=== PATIENT | female | born 1975 | race Caucasian/White ===

== ENCOUNTER → 2020-01-25 09:55 | Outpatient (CLI) | payer OTHER, SELFPAY ==
--- NOTE | ~2020-01-25 | MR_ITS ---
EXAMINATION: MR lumbar spine wo/w con DATE: 01/25/2020 10:45 INDICATION: Postlaminectomy syndrome. Low back pain and bilateral leg pain. TECHNIQUE: Magnetic resonance imaging (MRI) of the lumbar spine was performed without and with 12 mL MultiHance intravenous contrast. Sequences included sagittal T2-weighted FSE, sagittal STIR FSE, and sagittal and axial T1-weighted FSE. Postcontrast sequences included axial T2-weighted FSE and axial a nd sagittal T1-weighted FS FSE. COMPARISON: Lumbar spine MRI 03/01/2017 FINDINGS: There is 6 degrees dextrocurvature lumbar spine. Vertebral body heights are normal. There a re changes of anterior and posterior fusion procedures at L4-L5 with interbody devices and pedicle sc rews. There is mildly decreased disc height at L3-L4. The distal spinal cord signal intensity is norm al. The conus medullaris is at L1. The following disc levels are specifically discussed: L1-L2: The disc does not extend beyond the endplate margin. There is mild bilateral facet joint osteo arthritis. There is no neural foraminal stenosis. There is no central canal stenosis. L2-L3: The disc does not extend beyond the endplate margin. There is mild bilateral facet joint osteo arthritis. There is no neural foraminal stenosis. There is no central canal stenosis. L3-L4: There is a left foraminal protrusion with annular fissure. There is mild bilateral facet joint osteoarthritis. There is mild bilateral neural foraminal stenosis. There is no central canal stenosi s. L4-L5: There is no facet joint hypertrophy. There is mild right neural foraminal stenosis. There is n o central canal stenosis. L5-S1: The disc does not extend beyond the endplate margin. There is severe bilateral facet joint ost eoarthritis. There is mild bilateral neural foraminal stenosis. There is no central canal stenosis. IMPRESSION: 1. Mild lumbar spondylosis, stable from 03/01/2017. 2. Anterior and posterior fusion procedures at L4-L5. Reviewed, dictated and finalized at location D.
[2020-01-25 10:18] LABS: Estimated Glomerular Filt Rate > 60
== END ==
PROVIDERS: Visit Provider Nurse Practitioner Family
DX: M96.1 Postlaminectomy syndrome, not elsewhere classified (principal); M47.896 Other spondylosis, lumbar region; Z98.1 Arthrodesis status
CPT/HCPCS: 72158; A9577

== ENCOUNTER → 2020-03-15 11:36 | Outpatient (CLI) | payer OTHER, SELFPAY ==
--- NOTE | ~2020-03-15 | MM_ITS ---
EXAMINATION: MM screening [facility] BI w frank HISTORY: Screening mammogram TECHNIQUE: Craniocaudal and mediolateral oblique 3-D tomosynthesis images were obtained and synthetic 2-D images were generated. CAD analysis was submitted and interpreted. COMPARISON: 07/23/2018, 05/31/2013, 01/09/2012 bilateral digital screening mammogram examinations BREAST PARENCHYMAL COMPOSITION: The breasts are heterogeneously dense, which may obscure small masses . FINDINGS: There is no evidence of suspicious mass, calcification, or architectural distortion to sugg est malignancy in either breast. There has been no suspicious interval change. IMPRESSION: 1. No mammographic evidence of malignancy. 2. Recommend routine screening mammography in one year. BI-RADS Category 1: Negative Reviewed, dictated and finalized at location A. GRATION LAWYER
== END ==
PROVIDERS: PCP Family Medicine; Visit Provider Family Medicine
DX: Z12.31 Encounter for screening mammogram for malignant neoplasm of breast (principal)
CPT/HCPCS: 77063; 77067

== ENCOUNTER → 2021-05-09 09:02 | Outpatient (CLI) | payer OTHER, SELFPAY ==
[2021-05-09 21:56] LABS: SARS-CoV-2 RNA PCR Negative
[2021-05-11 23:28] LABS: Influenza A QL RT-PCR Negative (Negative); Influenza B QL RT-PCR Negative (Negative)
== END ==
PROVIDERS: PCP Family Medicine; Visit Provider Family Medicine
DX: R50.9 Fever, unspecified (principal); J06.9 Acute upper respiratory infection, unspecified; Z20.822 Contact with and (suspected) exposure to COVID-19
CPT/HCPCS: 87502; C9803; U0003; U0005

== ENCOUNTER → 2021-10-16 16:53 | Outpatient (CLI) | payer OTHER, SELFPAY ==
--- NOTE | ~2021-10-16 | MR_ITS ---
EXAMINATION: MR lumbar spine wo con DATE: 10/16/2021 17:22 INDICATION: Postlaminectomy syndrome with low back and bilateral leg pain, left greater than right. TECHNIQUE: Magnetic resonance imaging (MRI) of the lumbar spine was performed without intravenous con trast. Sequences included sagittal T2-weighted FSE, sagittal T2-weighted FS FSE, sagittal T1-weighted FSE, and axial T2-weighted FSE. COMPARISON: 01/25/2020 FINDINGS: 2 mm retrolisthesis L3 on L4. Discectomy and combined instrumented anterior and posterior spinal fusi on at L4-L5 with interbody fusion device and bilateral vertical marcelino and pedicle screw fixation. Verte bral body heights are normal. Normal marrow signal. Mild disc desiccation and mild disc height loss at L3-L4. Mild disc desiccation without disc height loss at L5-S1. The conus medullaris terminates at L1. There is normal signal in the caudal spinal cord. Paravertebral soft tissues are unremarkable. T he following disc levels are specifically discussed: T12-L1 through L2-L3: The disc does not extend beyond the endplate margin. There is mild bilateral fa cet joint osteoarthritis. There is no neural foraminal stenosis. There is no central canal stenosis. L3-L4: Disc is mildly bulging with superimposed left foraminal zone annular fissure and disc protrusi on. There is mild to moderate bilateral facet joint osteoarthritis. There is mild right and moderate left neural foraminal stenosis. There is mild central canal stenosis. L4-L5: Instrumented anterior and posterior fusion. Posterior decompression with left-sided hemilamino margot including partial resection of the anterior aspect of the intra-articular process of L4 and supe rior articular process of L5. There is mild left neural foraminal stenosis. There is no central canal stenosis. L5-S1: Disc is mildly bulging with right foraminal zone annular fissure and new small disc protrusion . There is severe bilateral facet joint osteoarthritis. There is mild left and moderate right neural foraminal stenosis. There is no central canal stenosis. IMPRESSION: 1. Instrumented anterior and posterior spinal fusion at L4-L5. 2. Slight progression of mild lumbar spondylosis as detailed above. Reviewed, dictated and finalized at location A.
== END ==
PROVIDERS: PCP Family Medicine; Visit Provider Nurse Practitioner Family
DX: M47.26 Other spondylosis with radiculopathy, lumbar region (principal); Z98.1 Arthrodesis status
CPT/HCPCS: 72148

== ENCOUNTER → 2022-01-08 11:08 | Outpatient (CLI) | payer OTHER, SELFPAY ==
--- NOTE | ~2022-01-08 | CT_ITS ---
EXAMINATION: CT lumbar spine wo con DATE: 01/08/2022 11:23 INDICATION: Lumbar disc herniation. TECHNIQUE: Computed tomography (CT) of the lumbar spine was performed without intravenous contrast. A utomated exposure control and iterative reconstruction technique were employed. The dose-length produ ct was 734.80 mGy-cm. COMPARISON: Lumbar spine MRI 10/16/2021 FINDINGS: There are 2 masses in left adrenal gland with the larger measuring 1.9 cm measuring low-att enuation, consistent with adenomas. There is 2 mm retrolisthesis of L3 on L4. Vertebral body heights are normal. There is mildly decreased disc height at L3-L4. There are changes of anterior and posteri or fusion procedures at L4-L5 with interbody device, healed interbody bone graft, and pedicle screws. The following disc levels are specifically discussed: L1-L2: The disc does not extend beyond the endplate margin. There is mild bilateral facet joint osteo arthritis. There is no neural foraminal stenosis. There is no central canal stenosis. L2-L3: The disc does not extend beyond the endplate margin. There is mild right and moderate left fac et joint osteoarthritis. There is no neural foraminal stenosis. There is no central canal stenosis. L3-L4: The disc is bulging. There is mild bilateral facet joint osteoarthritis. There is mild right a nd moderate left neural foraminal stenosis. There is mild central canal stenosis. L4-L5: There is no facet joint hypertrophy. There is no neural foraminal stenosis. There is no centra l canal stenosis. L5-S1: The disc is bulging. There is severe bilateral facet joint osteoarthritis. There is moderate r ight and mild left neural foraminal stenosis. There is mild central canal stenosis. IMPRESSION: 1. Moderate lumbar spondylosis, stable from 10/16/2021. 2. Anterior and posterior fusion procedures at L4-L5. Reviewed, dictated and finalized at location A.
== END ==
PROVIDERS: PCP Family Medicine
DX: M51.26 Other intervertebral disc displacement, lumbar region (principal); G89.29 Other chronic pain
CPT/HCPCS: 72131

== ENCOUNTER 2022-03-15 16:55 | Emergency (ER) | payer OTHER, SELFPAY ==
--- NOTE | ~2022-03-15 | CT_ITS ---
EXAMINATION: CT lumbar spine wo con DATE: 03/15/2022 17:47 INDICATION: L lower back pain, Hx of spinal surg, pop tonight . TECHNIQUE: Computed tomography (CT) of the lumbar spine was performed without intravenous contrast. A utomated exposure control and iterative reconstruction technique were employed. The dose-length produ ct was 776.44 mGy-cm. COMPARISON: 01/08/2022. FINDINGS: Left adrenal adenomas. Atherosclerotic calcification of the abdominal aorta. Posterior lumb ar hardware fusion spanning L4-5, without evident hardware-related complication well incorporated bon e plug. Partial laminectomy at L4 on the left. 5 nonrib-bearing lumbar-type vertebral bodies. Pedicle s intact. Minimal stable trace retrolisthesis at L3-4.. Vertebral body heights preserved. Disc spaces maintained. Normal facets and posterior elements. No severe central canal or neural foraminal narrow ing. Moderate left L3-4 and right L5-S1 neural foraminal narrowing IMPRESSION: No acute fracture or traumatic malalignment in the lumbar spine. Reviewed, dictated and finalized at location K. SETTER
[2022-03-15 17:00] VITALS: BP 150/99; PULSE 94; RESP 17; TEMP 36.7; O2SAT 96
--- NOTE | 2022-03-15 17:20 | ED.BACK ---
HPI - Back Pain/Injury General Chief Complaint: Back Pain/Injury Stated Complaint: LOW BACK PAIN, POP X 2, HX BACK PAIN Time Seen by Provider: 03/15/22 17:00 Source: patient Mode of arrival: EMS Limitations: no limitations History of Present Illness HPI Narrative: Patient is a 46 y/o female who presents to the ED via EMS with c/o low back pain. Patient reports a history of chronic back pain, previous lumbar microdiscectomy and spinal fusion. She has been seeing pain management and undergoing physical therapy over the last several weeks. She states today she bent over to clean something in her bedroom when she felt two pops in her left lower back with severe pain. She states she was unable to stand upright, walk, or straighten her legs afterwards due to the intense pain, at which point EMS was called. Patient denies any abdominal pain, nausea, vomiting, pain radiating down legs, weakness in legs, numbness, tingling, saddle anesthesia, bowel or bladder incontinence. Patient takes Gabapentin 600mg TID, Tylenol and Hydrocodone prn. Related Data Home Medications Medication Instructions Recorded Confirmed gabapentin 600 mg tablet 600 mg PO Q8H 12/11/21 01/15/22 Allergies Allergy/AdvReac Type Severity Reaction Status Date / Time Penicillins Allergy Unknown Unknown Verified 03/15/22 17:05 Review of Systems Review of Systems: CONSTITUTIONAL: Denies fever, chills, or sweats. CARDIOVASCULAR: Denies chest pain. RESPIRATORY: Denies dyspnea. GASTROINTESTINAL: Denies abdominal pain, nausea, vomiting, incontinence, or diarrhea. GENITOURINARY: Denies incontinence, dysuria or hematuria. MUSCULOSKELETAL: Reports L lower back pain. Denies pain down legs. NEUROLOGIC: Denies headache, saddle anesthesia, tingling, numbness, or weakness. 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 Smoking packs per day: 1 Smoking cigarettes per day: 20.0 Years smoked: 20 Smoking pack-years: 20.00 Smoking status: Former smoker Tobacco type: cigarettes Smoking end date: 03/18/20 Alcohol intake: never Substance use: never Substance use type: does not use Gender identity (if verbalized by the patient): Female Sexual Orientation (if Verbalized by the Patient): Straight or Heterosexual Agree to blood products: Yes Exam Narrative: GENERAL: Well appearing, obese, non-toxic, in mild acute distress. HEAD: Normocephalic, atraumatic. NECK: Supple. No adenopathy, no masses. RESPIRATORY: Airway patent, respirations nonlabored. Clear to auscultation bilaterally, no rales, rhonchi, wheezing. CARDIOVASCULAR: Regular rate and rhythm without murmurs, rubs, or gallops. Pedal pulses 2+ and equal bilaterally. ABDOMINAL: Soft, nontender, nondistended, no hepatosplenomegaly. Normoactive BS. MUSCULOSKELETAL: No gross deformities. Patient laying with knees flexed with feet planted stretcher, unwilling to move legs, limiting evaluation. Tenderness with mild palpation to L lumbosacral region. No appreciable midline spinal tenderness. Patient reporting pain with straight leg raise on L, pain with active flexion of L hip. Sensation intact. SKIN: Warm, dry, normal color. No rashes. NEURO: A&O X3. Speech clear. Cranial nerves II-XII grossly intact. Steady gait. No ataxic movements. PSYCHIATRIC: A
[2022-03-15] MEDS: ONDANSETRON INJ 4 MG/2 ML VIAL IV PUSH (17:30)
[2022-03-15] MEDS: HYDROmorphone HCL INJ (*CRX) 1 MG/ML SYR IV PUSH (17:30)
[2022-03-15 17:53] VITALS: BP 150/96; PULSE 77; RESP 14; O2SAT 99
--- NOTE | 2022-03-15 19:13 | PC.NURSE ---
Assumed care of pt at this time.
[2022-03-15] MEDS: diazePAM INJ (*CRX) 10 MG/2 ML SYRINGE 2 MG IV PUSH (19:38)
[2022-03-15] MEDS: KETOROLAC 30 MG/ML VIAL (*BKC) IV PUSH (19:38)
--- NOTE | 2022-03-15 20:07 | PC.NURSE ---
Pt able to ambulate without assistance.
[2022-03-15 21:38] VITALS: BP 133/89; PULSE 97; RESP 16; O2SAT 99
== END 2022-03-15 21:40 | disposition home or self-care (01) ==
PROVIDERS: Emergency Provider Physician Assistant; PCP Family Medicine
DX: S39.012A Strain of muscle, fascia and tendon of lower back, initial encounter (principal); E78.5 Hyperlipidemia, unspecified; G89.29 Other chronic pain; Z90.710 Acquired absence of both cervix and uterus; Z98.1 Arthrodesis status; Z87.891 Personal history of nicotine dependence; X50.9XXA Other and unspecified overexertion or strenuous movements or postures, initial encounter
CPT/HCPCS: 72131; 96365; 96375; 99284; J0131; J1170; J1885; J2405; J3360

== ENCOUNTER → 2022-05-05 12:46 | Outpatient (CLI) | payer OTHER, SELFPAY ==
--- NOTE | ~2022-05-05 | MM_ITS ---
EXAMINATION: MM screening [facility] BI w frank HISTORY: Screening mammogram TECHNIQUE: Craniocaudal and mediolateral oblique 3-D tomosynthesis images were obtained and synthetic 2-D images were generated. CAD analysis was submitted and interpreted. COMPARISON: 03/15/2020, 07/23/2018, 05/31/2013 BREAST PARENCHYMAL COMPOSITION: The breasts are heterogeneously dense, which may obscure small masses . FINDINGS: No suspicious mass, calcification, or architectural distortion are identified in either malcolm ast to suggest malignancy. There has been no suspicious interval change. IMPRESSION: 1. No mammographic evidence of malignancy. 2. Recommend routine screening mammography in one year. BI-RADS Category 1: Negative Reviewed, dictated and finalized at location A. T MARKER
== END ==
PROVIDERS: PCP Family Medicine; Visit Provider Nurse Practitioner Family
DX: Z12.31 Encounter for screening mammogram for malignant neoplasm of breast (principal)
CPT/HCPCS: 77063; 77067

== ENCOUNTER 2022-08-14 07:42 | Outpatient (CLI) | payer OTHER, SELFPAY ==
--- NOTE | ~2022-08-14 | US_ITS ---
EXAMINATION: US abdomen complete DATE: 08/14/2022 08:17 INDICATION: Abdominal distention TECHNIQUE: Multiple grayscale and Doppler ultrasound images of the abdomen were obtained. COMPARISON: None available FINDINGS: Bowel gas obscures visualization of the pancreas. The visualized portions of the pancreas a re unremarkable. The liver is normal with normal echogenicity and echotexture. No surface nodularity. Normal hepatopetal flow in the main portal vein. The gallbladder is normal with no abnormal wall thi ckening, pericholecystic fluid or stones. The normal common bile duct measures 4 mm. There was no son ographic Xie sign. The visualized portions of the aorta and inferior vena cava are normal. The spleen is normal in appearance and measures 10.2 cm. The right kidney measures 11.2 x 4.9 x 5.5 c m. The left kidney measures 11.9 x 4.9 x 5.4 cm. The kidneys demonstrate normal parenchymal echogenic ity. There is no hydronephrosis. IMPRESSION: 1. No sonographic correlate for the patient's symptoms. Reviewed, dictated and finalized at location B.
== END 2022-08-14 07:43 ==
LOC: GOSHIMG 07:43
PROVIDERS: PCP Family Medicine; Visit Provider Family Medicine
DX: R14.0 Abdominal distension (gaseous) (principal)
CPT/HCPCS: 76700

== ENCOUNTER 2022-12-04 11:32 | Outpatient (CLI) | payer OTHER, SELFPAY ==
--- NOTE | ~2022-12-04 | MR_ITS ---
EXAMINATION: MR lumbar spine wo/w con DATE: 12/04/2022 12:20 INDICATION: Lumbar radiculopathy. Left-sided low back pain. TECHNIQUE: Magnetic resonance imaging (MRI) of the lumbar spine was performed without and with 18 mL MultiHance intravenous contrast. COMPARISON: Lumbar spine MRI 10/16/2021 FINDINGS: There is 3 mm retrolisthesis of L3 on L4. There are changes of anterior and posterior fusio n procedures at L4-L5 with interbody devices and pedicle screws. There is mildly decreased disc heigh t at L3-L4. The distal spinal cord signal intensity is normal. The conus medullaris is at T12-L1. The following disc levels are specifically discussed: L1-L2: The disc does not extend beyond the endplate margin. There is mild bilateral facet joint osteo arthritis. There is no neural foraminal stenosis. There is no central canal stenosis. L2-L3: The disc does not extend beyond the endplate margin. There is mild bilateral facet joint osteo arthritis. There is no neural foraminal stenosis. There is no central canal stenosis. L3-L4: The disc is bulging and has an annular fissure. There is moderate bilateral facet joint osteoa rthritis. There is mild right and moderate left neural foraminal stenosis. There is mild central nicki l stenosis. L4-L5: There is no facet joint hypertrophy. There is no neural foraminal stenosis. There is no centra l canal stenosis. L5-S1: There is a right foraminal protrusion with annular fissure. There is severe bilateral facet higinio int osteoarthritis. There is moderate right and mild left neural foraminal stenosis. There is no cent ral canal stenosis. IMPRESSION: 1. Moderate lumbar spondylosis, stable from 10/16/2021. 2. Anterior and posterior fusion procedures at L4-L5. Reviewed, dictated and finalized at location A.
== END 2022-12-04 11:33 ==
DX: M47.26 Other spondylosis with radiculopathy, lumbar region (principal); Z98.1 Arthrodesis status
CPT/HCPCS: 72158; A9577

== ENCOUNTER 2023-06-04 12:48 | Outpatient (CLI) | payer OTHER, SELFPAY ==
--- NOTE | ~2023-06-04 | CT_ITS ---
Non-contrast Head CT History: Extremity weakness Technique: Axial non-contrast imaging of the brain was performed. Dose reduction technique was used on this scan by utilizing automated exposure control and iterative reconstruction technique. The dose -length product (DLP) was 605.33 mGy-cm. Findings: There is no evidence of intracranial hemorrhage, mass lesion, or acute infarct. Brain par enchyma appears normal. The ventricles and subarachnoid spaces are normal in size. The calvarium ap pears normal. The visualized paranasal sinuses and mastoid air cells are clear. Impression: No significant abnormality seen. Reviewed, dictated and finalized at [facility]. E PROCESS OPERATOR Impression: No significant abnormality seen.
== END 2023-06-04 12:49 | disposition home or self-care (01) ==
PROVIDERS: PCP Family Medicine; Visit Provider Family Medicine
DX: R29.898 Other symptoms and signs involving the musculoskeletal system (principal)
CPT/HCPCS: 70450

== ENCOUNTER 2023-08-04 12:58 | Outpatient (CLI) | payer OTHER, SELFPAY ==
--- NOTE | 2023-08-04 14:00 | NEURO_ITS ---
Impression: # History of multiple lower back surgeries and Regional Pain Syndrome. # Normal motor and sensory Nerve Conduction Study. # Normal needle/EMG exam without denervation potentials or neurogenic changes. # Clinical correlation recommended. Nerve Conduction Studies Anti Sensory Summary Table Stim Site NR Peak (ms) P-T Amp (?V) Site1 Site2 Delta-P (ms) Dist (cm) Maik (m/s) Left Sup Fibular Anti Sensory (Ant Lat Mall) 14 cm 3.0 10.0 14 cm Ant Lat Mall 3.0 16.0 53 Right Sup Fibular Anti Sensory (Ant Lat Mall) 14 cm 3.1 11.1 14 cm Ant Lat Mall 3.1 16.0 52 Left Sural Anti Sensory (Lat Mall) Calf 3.4 18.9 Calf Lat Mall 3.4 16.0 47 Right Sural Anti Sensory (Lat Mall) Calf 3.2 9.7 Calf Lat Mall 3.2 16.0 50 Motor Summary Table Stim Site NR Onset (ms) O-P Amp (mV) Site1 Site2 Delta-0 (ms) Dist (cm) Maik (m/s) Left Peroneal Motor (Vastus Med) Ankle 4.1 5.8 Popit Ankle 8.0 42.0 53 Popit 12.1 4.8 Right Peroneal Motor (Vastus Med) Ankle 3.8 7.2 Popit Ankle 8.0 40.0 50 Popit 11.8 5.5 Left Tibial Motor (Abd Victor Brev) Ankle 4.2 6.2 Knee Ankle 7.9 42.0 53 Knee 12.1 5.3 Right Tibial Motor (Abd Victor Brev) Ankle 4.0 5.7 Knee Ankle 8.1 40.0 49 Knee 12.1 3.6 F Wave Studies NR F-Lat (ms) L-R F-Lat (ms) Left Peroneal (Mrkrs) (EDB) 48.13 0.59 Right Peroneal (Mrkrs) (EDB) 47.54 0.59 Left Tibial (Mrkrs) (Abd Hallucis) 49.19 0.11 Right Tibial (Mrkrs) (Abd Hallucis) 49.31 0.11 EMG Side Muscle Nerve Root Ins Act Fibs Amp Dur Recrt Comment Right AntTibialis Dp Br Fibular L4-5 Nml Nml Nml Nml Nml Right Gastroc Tibial S1-2 Nml Nml Nml Nml Nml Right Fibularis Long Sup Br Fibular L5-S1 Nml Nml Nml Nml Nml Right Flex Dig Long Tibial L5-S2 Nml Nml Nml Nml Nml Right Ext Dig Brev Dp Br Fibular L5, S1 Nml Nml Nml Nml Nml Left AntTibialis Dp Br Fibular L4-5 Nml Nml Nml Nml Nml Left Gastroc Tibial S1-2 Nml Nml Nml Nml Nml Left Fibularis Long Sup Br Fibular L5-S1 Nml Nml Nml Nml Nml Left Flex Dig Long Tibial L5-S2 Nml Nml Nml Nml Nml Left Ext Dig Brev Dp Br Fibular L5, S1 Nml Nml Nml Nml Nml MTDD
== END 2023-08-04 12:59 | disposition home or self-care (01) ==
LOC: ANHNEURO 13:03
PROVIDERS: PCP Family Medicine; Visit Provider Nurse Practitioner Adult Health
DX: R29.898 Other symptoms and signs involving the musculoskeletal system (principal); G62.9 Polyneuropathy, unspecified; Z98.1 Arthrodesis status
CPT/HCPCS: 95886; 95910

== ENCOUNTER 2023-08-10 09:01 | Outpatient (CLI) | payer OTHER, SELFPAY ==
--- NOTE | ~2023-08-10 | US_ITS ---
EXAMINATION: US venous doppler [facility] DATE: 08/10/2023 10:18 INDICATION: Cyanosis to the lower extremities TECHNIQUE: Grayscale ultrasound images without and with compression and Doppler ultrasound images of the bilateral lower extremity veins were obtained. COMPARISON: None. FINDINGS: The visualized portions of right common femoral vein, profunda (deep) femoral vein, femoral vein, pop liteal vein, posterior tibial veins, peroneal veins, gastrocnemius vein and greater saphenous vein ou tflow are patent. The visualized portions of left common femoral vein, profunda femoral vein, femoral vein, popliteal v ein, posterior tibial veins, peroneal veins, gastrocnemius vein and greater saphenous vein outflow ar e patent. IMPRESSION: 1. No deep venous thrombosis in either lower limb. Reviewed, dictated and finalized at location A.
--- NOTE | ~2023-08-10 | US_ITS ---
EXAMINATION: US art doppler w press LE BI DATE: 08/10/2023 10:18 INDICATION: Cyanosis in the lower extremities TECHNIQUE: Segmental pressures and plethysmographic and Doppler waveforms of the brachial and lower e xtremity arteries were obtained. COMPARISON: None. FINDINGS: Right and left brachial artery pressures of 132 mm Hg and 130 mm Hg, respectively, are concordant (no rmal difference <= 30 mmHg). The right ankle-brachial index (BENJAMIN) is 1.14 (normal >= 0.9-1). The right great toe-brachial index (T BI) is 0.64 (normal >= 0.6-0.8). Arterial waveforms are triphasic at the right common femoral and sup erficial femoral arteries and biphasic at the popliteal, posterior tibial and dorsalis pedis arteries , all with brisk systolic upstrokes. The left BENJAMIN is 1.14. The left TBI is 0.55. Arterial waveforms are triphasic at the left common femor al and superficial femoral arteries and biphasic at the popliteal, posterior tibial and dorsalis pedi s arteries, all with brisk systolic upstrokes. IMPRESSION: 1. Mild arterial occlusive disease to bilateral lower limbs with normal bilateral ABIs but mildly dec reased left and borderline decreased right TBIs Reviewed, dictated and finalized at location A. IMPRESSION: 1. Mild arterial occlusive disease to bilateral lower limbs with normal bilater al ABIs but mildly decreased left and borderline decreased right TBIs
== END 2023-08-10 09:02 | disposition home or self-care (01) ==
LOC: ANHIMG 09:02
PROVIDERS: PCP Family Medicine; Visit Provider Nurse Practitioner Adult Health
DX: I77.1 Stricture of artery (principal); R23.0 Cyanosis
CPT/HCPCS: 93923; 93970

== ENCOUNTER 2023-09-03 07:22 | Outpatient (CLI) | payer OTHER, SELFPAY ==
--- NOTE | ~2023-09-03 | MR_ITS ---
MRI of the brain Clinical History: Multiple sclerosis Technique: Axial and sagittal T1-weighted images were acquired. These were followed by axial T2-weigh david, diffusion weighted, gradient, and FLAIR images. Sagittal FLAIR images were also performed. Follo wing intravenous administration of 17 cc MultiHance gadolinium, T1-weighted fat-sat imaging was perfo rmed in the axial, coronal, and sagittal planes. Findings: No abnormal signal seen in the brain parenchyma/white matter. No abnormal mass lesion, intr acranial hemorrhage, or acute infarct seen. Ventricles and subarachnoid spaces are unremarkable. Orbits are unremarkable. Paranasal sinuses and m astoid air cells are clear. Major intracranial flow voids appear intact. Sagittal midline structures are intact. No abnormal signal seen in the corpus callosum. No abnormal postcontrast enhancement identified. IMPRESSION: Unremarkable exam. Reviewed, dictated and finalized at location . IMPRESSION: Unremarkable exam.
== END 2023-09-03 07:23 | disposition home or self-care (01) ==
PROVIDERS: PCP Family Medicine; Visit Provider Psychiatry & Neurology Neurology
DX: G35 Multiple sclerosis (principal); M96.1 Postlaminectomy syndrome, not elsewhere classified; M51.37 Other intervertebral disc degeneration, lumbosacral region; G47.00 Insomnia, unspecified
CPT/HCPCS: 70553; A9577

== ENCOUNTER 2024-05-19 08:33 | Outpatient (CLI) | payer OTHER, SELFPAY ==
--- NOTE | ~2024-05-19 | XR_ITS ---
EXAMINATION: XR UGIAC w barium swallow DATE: 05/19/2024 09:08 INDICATION: Cyclical vomiting syndrome TECHNIQUE: The patient drank thick barium, gas-producing crystals, and thin barium. A total of 1004 f luoroscopic images of the esophagus, stomach, and proximal small bowel were obtained. Fluoroscopy exp osure time was 1.5 minutes. Total DAP was 6.837 mGycm^2 COMPARISON: None. FINDINGS: The esophagus is normal without mass or stricture. Esophageal motility is normal. There is no hiatal hernia. There was no gastroesophageal reflux with provocative maneuvers. The stomach and pr oximal small bowel are normal. IMPRESSION: 1. Normal esophagram and upper GI study. Reviewed, dictated and finalized at location B. HER MACHINE OPERATOR
== END 2024-05-19 08:34 | disposition home or self-care (01) ==
LOC: MICIMG 08:34
PROVIDERS: PCP Family Medicine; Visit Provider Family Medicine
DX: R11.15 Cyclical vomiting syndrome unrelated to migraine (principal)
CPT/HCPCS: 74246

== ENCOUNTER 2024-05-19 09:18 | Outpatient (CLI) | payer OTHER, SELFPAY ==
--- NOTE | 2024-05-19 09:28 | ECG_ITS ---
Test Date: 2024-05-19 09:38:32 Measurements Intervals [place] Rate: 76 P: 72 DC: 145 QRS: 71 QRSD: 84 T: 55 QT: 368 QTc: 416 Interpretive Statements SINUS RHYTHM POSSIBLE LEFT ATRIAL ENLARGEMENT [-0.1mV P-WAVE IN V1/V2] No previous ECG available for comparison Electronically Signed On 05-19-2024 14:37:46 INTERNET WEBMASTER by Solange Strange M.D.
--- OUTSIDE RECORDS SUMMARY | 2024-05-19 09:36 | XMS_ITS | Clinical Summary ---
Author Organization [facility] Address [address] [place] [address] Care Team Providers Care Color Finisher Name Role Phone Viktor Banegas MD Primary Care Provider [phone] Source Comments [facility],non-owned Affiliates and Associated Physician Practices is amultiple site organization consisting of ambulatory clinics and hospital sitesin [place], [place], [place] and [place]. This disclosure is being madepursuant to the Care Everywhere program and may not contain all information available regarding this patient. Last updated 18.[facility] Allergies Active Allergy Reactions Criticality Noted Date Comments Penicillins Other 12/02/2022 . Medications * Be aware that medications may not be up to date on this document. Alwaysverify current medications with the patient. Medication Sig Dispensed Refills Start Date End Date Status DULoxetine HCl 30 MG CSDR Take 1 capsule by mouth 07/28/2022 Active pregabalin (Lyrica) 150 MG capsule TAKE ONE CAPSULE (150MG) BY MOUTH THREE TIMES DAILY Active amitriptyline (Elavil) 25 MG tablet Take 1 (one) tablet by mouth at bedtime Active vitamin D3 (Cholecalciferol) 10 MCG (400 UNIT) tablet Take 1 (one) tablet by mouth once daily Active ALPRAZolam (Xanax) 0.5 MG tablet 05/09/2024 Active clonazePAM (KlonoPIN) 0.5 MG tablet TAKE 1-2 TABLETS FOR PANIC ATTACKS TWICE DAILY NEEDED FOR PANIC ATTACKS 10/06/2023 05/10/2024 Discontinued( List Clean-Up) ondansetron, disintegrating, (Zofran ODT) 4 MG tablet TAKE 1 TABLET (4MG) BY MOUTH EVERY 8 HOURS NEEDED FOR NAUSEA AND VOMITING 07/14/2023 05/10/2024 Discontinued( List Clean-Up) Active Problems Problem Noted Date Diagnosed Date Fibromyalgia 11/01/2023 Assessment & Plan (11/01/2023 11:47 AM CDT): Suspect chronic pain and myalgia is 2/2 Fibromyalgia. - reassured patient, based on the current S&S , workup no concern for DIRECTOR OF LOSS PREVENTION vasculitis or Lupus. - Continue duloxetine, recommend monitor for Serotonin Syndrome - Reported some recent improvement with amitriptyline Resolved Problems Problem Noted Date Diagnosed Date Resolved Date Positive LORENA (antinuclear antibody) 11/01/2023 11/01/2023 Assessment & Plan (11/01/2023 11:24 AM CDT): By itself, a positive LORENA test does not indicate the presence of an autoimmune disease or the need for therapy. Approximately 15% of the normal population will have a positive LORENA test;and can also be seen in other conditions, such as thyroid diseases, viral infections or caused by some medications. Antinuclear antibody overview: A test for antinuclear antibodies (LORENA) is common in people who are suspected of having an autoimmune or systemic connective tissue disease disorder. Antibodies are proteins that are made as part of the immune response. The result of an LORENA test may be used in 1 or more ways: To aid in diagnosis of an autoimmune or connective tissue disease disorder, to rule out autoimmune or connective tissue disease disorders in people presenting only with a few symptoms, to measure disease activity, and order to determine the specific type of disease that affects the patient. Of people with the following disorders or characteristics may have positive LORENA test results including systemic lupus erythematosus, scleroderma, mixed connective tissue disease, polymyositis/dermatomyositis, rheumatoid arthritis, rheumatoid vasculitis, Sjogren syndrome, drug-induced lupus, discoid lupus, possibly articular juvenile chronic idiopathic arthritis or ANCA related vasculitic syndromes. In addition, some people with autoimmune diseases that affect the gastrointestinal tract, thyroid gland, liver, or lung (including Rosi's thyroiditis, Graves disease, autoimmune hepatitis, primary biliary cirrhosis, primary autoimmune cholangitis, inflammatory bowel disease including Crohn's disease or ulcerative colitis, and idiopathic pulmonary arterial hypertension) can have a positive LORENA test. Additionally, certain chronic infectious diseases, such as mononucleosis/EBV, hepatitis C virus infection, subacute bacterial endocarditis, tuberculosis, lymphoproliferative diseases, and human immunodeficiency virus (HIV) may also produce a positive LORENA test. As such, a positive LORENA does not necessarily mean that the person has lupus or another systemic connective tissue disease disorder. As noted earlier, many healthy people may have a positive LORENA test. The LORENA test is said to be a ? false positive? test result when a person test positive but does not have any other features of autoimmune disease. This situation occurs more often in women and elderly people especially when tested in individuals with a low pretest probability for systemic lupus erythematosus or other systemic rheumatic connective tissue disease. Certain medications also may increase the chance of having a positive LORENA test which may or may not represent a drug-induced lupus type syndrome. Depending on the symptoms that led to the initial LORENA screening testing may be necessary and ordered for further evaluation may or may not be recommended for 1 or more of the disorders that can be associated with a positive LORENA. Encounters Date Type Department Care Team Description 05/10/2024 8:30 AM DIAL MARKER Office Visit [facility] - Rheumatology [address] [place] [address] [place] [address] Aakash Pickens MD Positive LORENA (antinuclear antibody) (Primary Dx); Fibromyalgia 05/10/2024 Travel from Last 3 Months Social History Tobacco Use Types Packs/Day Years Used Date Smoking Tobacco: Former Cigarettes 1 5.1 S tarted: 2020 Smokeless Tobacco: Never Tobacco Cessation:Counseling Given: Not Answered Alcohol Use Standard Drinks/Week Comments Never 0 (1 standard drink = 0.6 oz pur e alcohol) PHQ-2 Answer Date Recorded Patient Health Questionnaire-2 Score 6 05/10/2024 Sex and Gender Information Value Date Recorded Sex Assigned at Female 10/25/2023 2:19 PM CDT Gender Identity Female 10/25/2023 2:19 PM CDT Sexual Orientation Straight 10/25/2023 2: 19 PM CDT Last Filed Vital Signs Vital Sign Reading Time Taken Comments Blood Pressure 136/92 05/10/2024 8:29 AM DIAL MARKER Pulse 95 05/10/2024 8:29 AM DIAL MARKER Temperature 36.8 ??C (98.3 ??F) 05/10/2024 8:29 AM CS T Respiratory Rate 16 11/01/2023 9:04 AM CDT Oxygen Saturation 96% 05/10/2024 8:29 AM DIAL MARKER Inhaled Oxygen Concentration - - Weight 82.1 kg (181 lb) 05/10/2024 8:29 AM DIAL MARKER Height 162.6 cm (5' 4 ) 05/10/2024 8:29 AM DIAL MARKER Body Mass Index 31.07 05/10/2024 8:29 AM DIAL MARKER Plan of Treatment Health Maintenance Due Date Last Done Comments COLOGUARD (AGES 45-75) - COL ON CA SCREENING 1975 COLON MONITORING 1975 COLONOSCOPY - COLON CA SCREENING 1975 CT COLONOGRAPHY - COLON CA SCREENING 1975 Colorectal Cancer Screening 1975 FIT - COLON CA SCREENING 1975 FLEX SIG - COLON CA SCREENING 1975 LIPID TESTING 1975 MAMMOGRAM 1975 PAP SMEAR 1975 HIV SCREENING 12/04/1990 HEPATITIS C SCREENING 11/30/1993 DTAP/TDAP/TD VACCINES (1 - Tdap) 12/04/1994 HEPATITIS B VACCINE (1 of 3 - 19+ 3-dose series) 12/04/1994 SCREENING FOR DIABETES 11/01/2023 COVID-19 VACCINE (1 - 2023-2 5 season) 2023 INFLUENZA VACCINE (#1) 2023 ZOSTER VACCINE (1 of 2) 12/04/2025 DEPRESSION SCREENING Completed 05/10/2024 HIB VACCINE Aged Out No longer eligi ble based on patient's age to complete this topic HPV VACCINE Aged Out No longer eligi ble based on patient's age to complete this topic MENINGOCOCCAL (Group B) VACCINE Aged Out No longer eligible based on patient's age to complete this topic MENINGOCOCCAL VACCINE Aged Out No gabriella jac eligible based on patient's age to complete this topic PNEUMOCOCCAL VACCINE Aged Out No long er eligible based on patient's age to complete this topic Care Teams Color Finisher Relationship Specialty Start Date End Date Viktor Banegas MD [address] [place] [address] PCP - General Family Medicine 11/01/23
--- OUTSIDE RECORDS SUMMARY | 2024-05-19 09:36 | XMS_ITS | Referral Summary ---
Author Organization [facility] Address [address] [address] Care Team Providers Care Auto Parts Delivery Driver Name Role Phone Viktor Banegas MD Primary Care Provider [phone] Source Comments [facility],non-owned Affiliates and Associated Physician Practices is amultiple site organization consisting of ambulatory clinics and hospital sitesin [place], [place], [place] and [place]. This disclosure is being madepursuant to the Care Everywhere program and may not contain all information available regarding this patient. Last updated 18.[facility] Encounters Date Type Department Care Team Description 05/10/2024 Travel 05/10/2024 8:30 AM TELEPHONE CLERK Office Visit [facility] - Rheumatology [address] [place] [address] [place] [id number] Aakash Pickens MD Positive LORENA (antinuclear antibody) (Primary Dx); Fibromyalgia from Last 3 Months Allergies Active Allergy Reactions Criticality Noted Date Comments Penicillins Other 12/02/2022 . Medications * Be aware that medications may not be up to date on this document. Always verify current medications with the patient. Medication Sig [...] current S&S , workup no concern for CREWMAN MAIN BATTLE TANK vasculitis or Lupus. - Continue duloxetine, recommend [...] can be associated with a positive LORENA. Social History Tobacco Use Types Packs/Day Years Used Date Smoking Tobacco: Former Cigarettes 1 5.1 S tarted: 2019 Smokeless Tobacco: Never Tobacco Cessation:Counseling Given: Not [...] Comments Blood Pressure 136/92 05/10/2024 8:29 AM TELEPHONE CLERK Pulse 95 05/10/2024 8:29 AM TELEPHONE CLERK Temperature 36.8 ??C (98.3 ??F) 05/10/2024 8:29 AM CS T Respiratory Rate 16 11/01/2023 9:04 AM CDT Oxygen Saturation 96% 05/10/2024 8:29 AM TELEPHONE CLERK Inhaled Oxygen Concentration - - Weight 82.1 kg (181 lb) 05/10/2024 8:29 AM TELEPHONE CLERK Height 162.6 cm (5' 4 ) 05/10/2024 8:29 AM TELEPHONE CLERK Body Mass Index 31.07 05/10/2024 8:29 AM TELEPHONE CLERK Plan of Treatment Not on file Care Teams Auto Parts Delivery Driver Relationship Specialty Start Date End Date Viktor Banegas MD [address] [place] [phone] PCP - General Family Medicine 11/01/23
--- OUTSIDE RECORDS SUMMARY | 2024-05-19 09:36 | XMS_ITS | Patient Health Summary ---
Author Organization [facility] Address [address] [place] [address] Care Team Providers Care Shells Inspector Name Role Phone Viktor Banegas MD Primary Care Provider [phone] Note from [facility],non-owned Affiliates and Associated Physician Practices is amultiple site organization consisting of ambulatory clinics and hospital sitesin [place], [place] and [place]. This disclosure is being madepursuant to the Care Everywhere program and may not contain all information available regarding this patient. Last updated 18.[facility] Allergies * Penicillins(Other) Medications * Be aware that medications may not be up to date on this document. Alwaysverify current medications with the patient. * DULoxetine HCl 30 MG CSDR(Started 07/28/2022) Take 1 capsule by mouth * pregabalin (Lyrica) 150 MG capsule TAKE ONE CAPSULE (150MG) BY MOUTH THREE TIMES DAILY * amitriptyline (Elavil) 25 MG tablet Take 1 (one) tablet by mouth at bedtime * vitamin D3 (Cholecalciferol) 10 MCG (400 UNIT) tablet Take 1 (one) tablet by mouth once daily * ALPRAZolam (Xanax) 0.5 MG tablet(Started 05/09/2024) Ended Medications* clonazePAM (KlonoPIN) 0.5 MG tablet(Started 10/06/2023) (Discontinued) TAKE 1-2 TABLETS FOR PANIC ATTACKS TWICE DAILY NEEDED FOR PANIC ATTACKS * ondansetron, disintegrating, (Zofran ODT) 4 MG tablet(Started 07/14/2023) (Discontinued) TAKE 1 TABLET (4MG) BY MOUTH EVERY 8 HOURS NEEDED FOR NAUSEA AND VOMITING Active Problems Problem Noted Date Diagnosed Date Fibromyalgia 11/01/2023 Resolved Problems Problem Noted Date Diagnosed Date Resolved Date Positive LORENA (antinuclear antibody) 11/01/2023 11/01/2023 Social History Tobacco Use Types Packs/Day Years [...] Comments Blood Pressure 136/92 05/10/2024 8:29 AM APPLIANCES SAMPLE MAKER Pulse 95 05/10/2024 8:29 AM APPLIANCES SAMPLE MAKER Temperature 36.8 ??C (98.3 ??F) 05/10/2024 8:29 AM CS T Respiratory Rate 16 11/01/2023 9:04 AM CDT Oxygen Saturation 96% 05/10/2024 8:29 AM APPLIANCES SAMPLE MAKER Inhaled Oxygen Concentration - - Weight 82.1 kg (181 lb) 05/10/2024 8:29 AM APPLIANCES SAMPLE MAKER Height 162.6 cm (5' 4 ) 05/10/2024 8:29 AM APPLIANCES SAMPLE MAKER Body Mass Index 31.07 05/10/2024 8:29 AM APPLIANCES SAMPLE MAKER Care Teams Shells Inspector Relationship Specialty Start Date End Date Viktor Banegas MD [address] [place] [address] PCP - General Family Medicine 11/01/23
--- OUTSIDE RECORDS SUMMARY | 2024-05-19 09:36 | XMS_ITS | Clinical Summary ---
Author Organization [facility] Address [address] [place] [address] Phone Care Team Providers Care Construction Management Instructor Name Role Phone Viktor Banegas MD Primary Care Provider [phone] Allergies Active Allergy Reactions Criticality Noted Date Comments Penicillins Other (See Comments) 12/02/2022 . Medications DULoxetine 30 mg capsule, delayed rel sprinkle Take 1 Capsule by mouth. 07/28/2022 Active pregabalin (LYRICA) 150 mg Capsule Take 150 mg by mouth every 12 hours. 02/18/2022 Active ibuprofen (MOTRIN) 600 mg tablet Take 600 mg by mouth every 6 hours as needed for Pain, Mild. Active acetaminophen (TYLENOL) 325 mg tablet Take 650 mg by mouth every 4 hours as needed. Active methylPREDNISol one (MEDROL DOSPACK) 4 mg Tablets, Dose Pack Take as directed 21 Tablet 12/16/2022 Active HYDROcodone-bernie taminophen (NORCO) 5-325 mg tabletIndicatio ns:Lumbar foraminal stenosis Take 1 Tablet by mouth every 4 hours as needed for Moderate Pain. Max Daily Amount: 6 Tablets 20 Tablet 12/16/2022 Active cyclobenzaprine (FLEXERIL) 10 mg tablet Take 10 mg by mouth. 03/18/2022 Active Active Problems No known active problems Social History Tobacco Use Types Packs/Day Years Used Date Smoking Tobacco: Former Cigarettes 1 15 2 2019 Smokeless Tobacco: Never Tobacco Cessation:Counseling Given: Not Answered Alcohol Use Standard Drinks/Week Comments Not Currently 0 (1 standard drink = 0.6 oz pur e alcohol) Feeling Safe Answer Date Recorded Are you in a relationship wi th someone who hurts you emotionally and/or physically? Unable to obtain 12/08/2022 Food Insecurity Answer Date Recorded Social/Environmental Concerns No concerns Transportation Needs Answer Date Record ed Social/Environmental Concerns No concerns Housing Stability Answer Date Recorded Social/Environmental Concerns No concerns Utility Needs Answer Date Recorded Social/Environmental Concerns No concerns Comments No Sex and Gender Information Value Date Recorded Sex Assigned at Female 11/30/2022 2:40 PM CDT Legal Sex Female 11:06 AM CDT Gender Identity Female 11/30/2022 2:40 PM CDT Sexual Orientation Straight 11/30/2022 2: 40 PM CDT Last Filed Vital Signs Vital Sign Reading Time Taken Comments Blood Pressure 139/87 01/15/2023 8:14 AM CDT Pulse 85 01/15/2023 8:14 AM CDT Temperature 36.8 ??C (98.2 ??F) 01/15/2023 8:14 AM CD T Respiratory Rate 16 12/08/2022 4:02 PM CDT Oxygen Saturation 99% 01/15/2023 8:14 AM CDT Inhaled Oxygen Concentration - - Weight 89.2 kg (196 lb 9.6 oz) 01/15/2023 8:14 A M CDT Height 162.6 cm (5' 4 ) 01/15/2023 8:14 AM CDT Body Mass Index 33.75 01/15/2023 8:14 AM CDT Plan of Treatment Health Maintenance Due Date Last Done Comments DTAP/TDAP/TD VACCINES (1 - Tdap) 12/04/1994 HEPATITIS B VACCINES (1 of 3 - 19+ 3-dose series) 11/17 CERVICAL CANCER SCREENING 12/04/2005 BREAST CANCER SCREENING 2015 COLORECTAL SCREENING 12/04/2020 Colorectal Cancer Screening 12/04/2020 FIT-DNA Q 3 years 12/04/2020 FIT/FOBT Q 1 year 12/04/2020 Flex Sig/CT Colonography Q 5 years 12/04/2020 INFLUENZA VACCINE (#1) 2023 Medical Devices Implanted Type Area Roving Can Tender Device Identifier Shelf Expiration Date Model / Serial / Lot Hemostatic Surgiflo 8ml W/ Thrombin 2994 - [id number] Implanted:Qty: 1 on 12/08/2022 by Ramakrishna Yi MD at [facility] Hemostatic Left: Neck [employer] [id number] 10/17/2023 [id number] / / [id number] Insurance RX [employer] RX Member Subscriber Plan / Payer (Ef fective 2022-Present) Name:Danielle Adamson Relation to Subscriber:Self Name:Danielle Adamson Subscriber ID:Not on file Payer ID:Not on file Group ID:[id number] Type:RX Commercial Address: [address] Advance Directives For more information, please contact: [phone] * Full Code (Latest Code Status on File) Date Activated Date Inactivated Comments 12/08/2022 11:17 AM 12/08/2022 6:39 PM Care Teams Construction Management Instructor Relationship Specialty Start Date End Date Viktor Banegas MD [address] [place] [address] PCP - General Family Practice 11/24/22
== END 2024-05-19 09:19 | disposition home or self-care (01) ==
LOC: ANHCARD 09:21
PROVIDERS: PCP Family Medicine; Visit Provider Family Medicine
DX: R07.89 Other chest pain (principal)
CPT/HCPCS: 93005

== ENCOUNTER 2024-06-06 13:17 | Outpatient (CLI) | payer OTHER, SELFPAY ==
--- OUTSIDE RECORDS SUMMARY | 2024-06-06 13:22 | XMS_ITS | Referral Summary ---
Author Organization [facility] Address [address] [place] [address] Care Team Providers Care Health Program Director Name Role Phone Viktor Banegas MD Primary Care Provider [phone] Source Comments [facility],non-owned Affiliates and Associated Physician Practices is amultiple site organization consisting of ambulatory clinics and hospital sitesin [place], [place], [place] and [place]. This disclosure is being madepursuant to the Care Everywhere program and may not contain all information available regarding this patient. Last updated 18.[facility] Encounters Date Type Department Care Team Description 05/10/2024 Travel 05/10/2024 8:30 AM CLAIM INSPECTOR Office Visit [facility] - Rheumatology [address] [place] [phone] Aakash Pickens MD Positive LORENA (antinuclear antibody) [...] current S&S , workup no concern for MACHINE JOINER CEMENTER vasculitis or Lupus. - Continue duloxetine, recommend [...] LORENA test is said to be a f alse positive test result when a person test positive [...] Comments Blood Pressure 136/92 05/10/2024 8:29 AM CLAIM INSPECTOR Pulse 95 05/10/2024 8:29 AM CLAIM INSPECTOR Temperature 36.8 C (98.3 F) 05/10/2024 8:29 AM CLAIM INSPECTOR Respiratory Rate 16 11/01/2023 9:04 AM CDT Oxygen Saturation 96% 05/10/2024 8:29 AM CLAIM INSPECTOR Inhaled Oxygen Concentration - - Weight 82.1 kg (181 lb) 05/10/2024 8:29 AM CLAIM INSPECTOR Height 162.6 cm (5' 4 ) 05/10/2024 8:29 AM CLAIM INSPECTOR Body Mass Index 31.07 05/10/2024 8:29 AM CLAIM INSPECTOR Plan of Treatment Not on file Care Teams Health Program Director Relationship Specialty Start Date End Date Viktor Banegas MD [address] [place] [address] PCP - General Family Medicine 11/01/23
--- OUTSIDE RECORDS SUMMARY | 2024-06-06 13:22 | XMS_ITS | Clinical Summary ---
Author Organization [facility] Address [address] [place] [address] Care Team Providers Care Supervisor Solder Making Name Role Phone Viktor Banegas MD Primary Care Provider [phone] Source Comments [facility],non-owned Affiliates and Associated Physician Practices is amultiple site organization consisting of ambulatory clinics and hospital sitesin [place], [place], [place] and [place]. This disclosure is being madepursuant to the Care Everywhere program and may not contain all information available regarding this patient. Last updated 18.[facility] Allergies Active Allergy Reactions Criticality Noted Date [...] current S&S , workup no concern for MEDICAL PHYSICS PROFESSOR vasculitis or Lupus. - Continue duloxetine, recommend [...] Department Care Team Description 05/10/2024 8:30 AM RECORD CHANGER ASSEMBLER Office Visit [facility] - Rheumatology [address] [place] [phone] Aakash Pickens MD Positive LORENA (antinuclear antibody) [...] Comments Blood Pressure 136/92 05/10/2024 8:29 AM RECORD CHANGER ASSEMBLER Pulse 95 05/10/2024 8:29 AM RECORD CHANGER ASSEMBLER Temperature 36.8 C (98.3 F) 05/10/2024 8:29 AM RECORD CHANGER ASSEMBLER Respiratory Rate 16 11/01/2023 9:04 AM CDT Oxygen Saturation 96% 05/10/2024 8:29 AM RECORD CHANGER ASSEMBLER Inhaled Oxygen Concentration - - Weight 82.1 kg (181 lb) 05/10/2024 8:29 AM RECORD CHANGER ASSEMBLER Height 162.6 cm (5' 4 ) 05/10/2024 8:29 AM RECORD CHANGER ASSEMBLER Body Mass Index 31.07 05/10/2024 8:29 AM RECORD CHANGER ASSEMBLER Plan of Treatment Health Maintenance Due Date [...] age to complete this topic Care Teams Supervisor Solder Making Relationship Specialty Start Date End Date Viktor Banegas MD [address] [place] [address] PCP - General Family Medicine 11/01/23
--- OUTSIDE RECORDS SUMMARY | 2024-06-06 13:22 | XMS_ITS | Clinical Summary ---
Author Organization [facility] Address [address] [place] [address] Phone Care Team Providers Care Endocrinology Nurse Name Role Phone Viktor Banegas MD Primary Care Provider [phone] Allergies Active Allergy Reactions Criticality Noted Date [...] 85 01/15/2023 8:14 AM CDT Temperature 36.8 C (98.2 F) 01/15/2023 8:14 AM CDT Respiratory Rate 16 12/08/2022 4:02 PM CDT [...] (#1) 2023 Medical Devices Implanted Type Area Director Employment Device Identifier Shelf Expiration Date Model / Serial / Lot Hemostatic Surgiflo 8ml W/ Thrombin 2994 - [id number] Implanted:Qty: 1 on 12/08/2022 by Ramakrishna Yi MD at [facility] Hemostatic Left: Neck [employer] [id number] 10/17/2023 [id number] / / [id number] Insurance [employer] [id number] Member Subscriber Plan / Payer (Ef fective 2022-Present) Name:Danielle Adamson Relation to Subscriber:Self Name:Danielle Adamson Subscriber ID:Not on file Payer ID:Not on file Group ID:[id number] Type:RX Commercial Address: [address] Advance Directives For more information, please contact: [phone] * Full Code (Latest Code Status on File) Date Activated Date Inactivated Comments 12/08/2022 11:17 AM 12/08/2022 6:39 PM Care Teams Endocrinology Nurse Relationship Specialty Start Date End Date Viktor Banegas MD [address] [place] [address] PCP - General Family Practice 11/24/22
--- OUTSIDE RECORDS SUMMARY | 2024-06-06 13:22 | XMS_ITS | Patient Health Summary ---
Author Organization [facility] Address [address] [place] [address] Care Team Providers Care Draw Tender Name Role Phone Viktor Banegas MD Primary Care Provider [phone] Note from [facility],non-owned Affiliates and Associated Physician Practices is amultiple site organization consisting of ambulatory clinics and hospital sitesin [place], [place], [place] and [place]. This disclosure is being madepursuant to the Care Everywhere program and may not contain all information available regarding this patient. Last updated 18.[facility] Allergies * Penicillins(Other) Medications * Be aware [...] Comments Blood Pressure 136/92 05/10/2024 8:29 AM APPRAISER Pulse 95 05/10/2024 8:29 AM APPRAISER Temperature 36.8 C (98.3 F) 05/10/2024 8:29 AM APPRAISER Respiratory Rate 16 11/01/2023 9:04 AM CDT Oxygen Saturation 96% 05/10/2024 8:29 AM APPRAISER Inhaled Oxygen Concentration - - Weight 82.1 kg (181 lb) 05/10/2024 8:29 AM APPRAISER Height 162.6 cm (5' 4 ) 05/10/2024 8:29 AM APPRAISER Body Mass Index 31.07 05/10/2024 8:29 AM APPRAISER Care Teams Draw Tender Relationship Specialty Start Date End Date Viktor Banegas MD [address] [place] [address] PCP - General Family Medicine 11/01/23
--- OUTSIDE RECORDS SUMMARY | 2024-06-06 13:22 | XMS_ITS | Clinical Summary ---
Author Organization [facility] Address [address] [place] [address] Care Team Providers Care Equipment Or Machinery Cleaner Name Role Phone Viktor Banegas MD Primary Care Provider [phone] Allergies Active Allergy Reactions Criticality Noted Date Comments Penicillins Medications sertraline (ZOLOFT) 50 mg tablet Take 50 mg by mouth daily 12/28/19 22 Active naloxone (NARCAN) 4 mg/actuation spray,non-aerosol 03/04/20 22 Active naproxen (NAPROSYN) 500 mg tablet 03/16/20 22 Active cyclobenzaprine (FLEXERIL) 10 mg tabletIndications: Muscle Spasm Take 1 tablet (10 mg total) by mouth 3 (three) times a day as needed for muscle spasms 90 tablet 6 03/18/20 22 Active Additional Information Patient not taking.Reported on 09/08/2023 pregabalin (LYRICA) 150 mg capsuleIndications :neuropathy Take 1 capsule (150 mg total) by mouth 2 (two) times a day 60 capsule 5 01/23/20 23 Active pregabalin (LYRICA) 150 mg capsule Take 1 capsule (150 mg total) by mouth 3 (three) times a day Active calcium carbonate-vitamin D3 2,500 mg (1,000 mg elemental)-800 unit tablet Take by mouth Acti ve DULoxetine DR (CYMBALTA) 60 mg capsule Take 90 mg by mouth 3 (three) times a day Active amitriptyline (ELAVIL) 25 mg tablet Take 1 tablet (25 mg total) by mouth nightly Active clonazePAM (KlonoPIN) 1 mg disintegrating tablet Take 1 tablet (1 mg total) by mouth 2 (two) times a day as needed for seizures Active ondansetron (ZOFRAN) 4 mg tablet Take 1 tablet (4 mg total) by mouth every 8 (eight) hours as needed for nausea or vomiting Active Active Problems Problem Noted Date Diagnosed Date Body aches 09/09/2023 Assessment & Plan (09/09/2023 1:53 PM CDT): Random intermittent all over body aches status post low back surgery which patient believes she has waxing waning symptoms recent LORENA titer was elevated. She has not complaining of any claudication symptoms or rest pain lower extremities are warm well perfused with palpable distal pulses. Outside facility arterial Doppler shows triphasic waveforms. Symptoms are not vascular in nature and likely maybe related to chronic pain disorder versus an autoimmune disorder due to her elevated LORENA. Would recommend follow-up with Rheumatology for further evaluation. Can follow up with the vascular as needed. Current smoker 10/16/2010 Hay fever 10/16/2010 Low back pain Surgical History Surgery Date Site/Laterality Comments BACK SURGERY Medical History Medical History Date Comments Tobacco abuse counseling Encount er for smoking cessation counseling - (Added by TW Conv) Anxiety Arthritis Low back pain Chronic pain disorder Family History Medical History Relation Name Comments Hypertension Father Cancer Mother Relation Name Status Comments Father Alive Mother Alive Social History Tobacco Use Types Packs/Day Years Used Date Smoking Tobacco: Former Cigarettes Tobacco Cessation:Counseling Given: Not Answered AUDIT-C Answer Date Recorded Q1: How often do you have a drink containing alc ohol? Monthly or less 06/25/2022 Q2: How many drinks containi ng alcohol do you have on a typical day when you are drinking? 1 or 2 06/25/2022 Q3: How often do you have si x or more drinks on one occasion? Never 06/25/2022 Comments No Sex and Gender Information Value Date Recorded Sex Assigned at Not on file Legal Sex Female 5:13 PM WIRE WEAVING LOOM SETTER Gender Identity Not on file Sexual Orientation Not on file Obstetrics History Last Filed Vital Signs Vital Sign Reading Time Taken Comments Blood Pressure 165/115 09/08/2023 8:34 AM CDT Pulse 92 09/08/2023 8:34 AM CDT Temperature 36.5 C (97.7 F) 06/25/2022 8:05 AM WIRE WEAVING LOOM SETTER Respiratory Rate 16 06/25/2022 8:05 AM WIRE WEAVING LOOM SETTER Oxygen Saturation 99% 09/08/2023 8:34 AM CDT Inhaled Oxygen Concentration - - Weight 89.8 kg (198 lb) 03/18/2022 9:00 AM WIRE WEAVING LOOM SETTER Height 162.6 cm (5' 4 ) 03/18/2022 9:00 AM WIRE WEAVING LOOM SETTER Body Mass Index 33.99 03/18/2022 9:00 AM WIRE WEAVING LOOM SETTER Plan of Treatment Health Maintenance Due Date Last Done Comments Breast Cancer Screening-Mammogram 1975 Colon Cancer Screening-Colonoscopy 1975 Depression Screening 1975 Hepatitis C Screening 1975 DTaP/Tdap/Td Vaccine (1 - Tdap) 12/04/1986 Hepatitis B Screening 12/04/1993 Regular Well Visit/Exam 18-64 12/04/1993 Influenza Vaccine (#1) 2023 Pneumococcal vaccine <65 Aged Out No longer eligible based on patient's age to complete this topic Goals Goal Patient Goal Type Associated Problems Recent Progress Patient-Stated? Author CCM Chronic Pain Care Plan Chronic Care Management No Keyla Carroll RN Note: Problem: Chronic Pain Goals: 1. Minimize further functional decline 2. Maximize quality of life 3. Control pain Strategies: - Activity/exercise program recommendation - Conservative stepwise pain medicine strategy with multi-disciplinary approach - Recommend healthy lifestyle strategies and compensatory methods as needed Reduce the likelihood of falling Lifestyle No Keyla Carroll RN Note: Below are four things you can do to prevent falls: Begin an exercise program to improve your leg strength & balance Ask your doctor or pharmacist to review your medicines Get annual eye check-ups & update your eyeglasses Make your home safer by: Removing clutter & tripping hazards Putting railings on all stairs & adding grab bars in the bathroom Having good lighting, especially on stairs Contact your local community or senior center for information on exercise, fall prevention programs, or options for improving home safety. Insurance [address] [id number] Care Teams Equipment Or Machinery Cleaner Relationship Specialty Start Date End Date Viktor Banegas MD [address] [place] [address] PCP - General Family Medicine 08/16/23
--- OUTSIDE RECORDS SUMMARY | 2024-06-06 13:22 | XMS_ITS | Referral Summary ---
Author Organization [facility] Address [address] [place] [address] Care Team Providers Care Wearing Apparel Presser Name Role Phone Viktor Banegas MD Primary Care Provider + [phone] Allergies Active Allergy Reactions Criticality Noted Date [...] 10/16/2010 Hay fever 10/16/2010 Low back pain Social History Tobacco Use Types Packs/Day Years [...] on file Legal Sex Female 5:13 PM ENVIRONMENTAL SERVICES TECH Gender Identity Not on file Sexual Orientation Not on file Last Filed Vital Signs Vital Sign Reading Time Taken Comments Blood Pressure 165/115 09/08/2023 8:34 AM CDT Pulse 92 09/08/2023 8:34 AM CDT Temperature 36.5 C (97.7 F) 06/25/2022 8:05 AM ENVIRONMENTAL SERVICES TECH Respiratory Rate 16 06/25/2022 8:05 AM ENVIRONMENTAL SERVICES TECH Oxygen Saturation 99% 09/08/2023 8:34 AM CDT Inhaled Oxygen Concentration - - Weight 89.8 kg (198 lb) 03/18/2022 9:00 AM ENVIRONMENTAL SERVICES TECH Height 162.6 cm (5' 4 ) 03/18/2022 9:00 AM ENVIRONMENTAL SERVICES TECH Body Mass Index 33.99 03/18/2022 9:00 AM ENVIRONMENTAL SERVICES TECH Plan of Treatment Not on file Goals Goal Patient Goal Type Associated Problems [...] the likelihood of falling Lifestyle No Keyla Carroll, VIDYA Note: Below are four things you can [...] on stairs Contact your local community or [facility] for information on exercise, fall prevention programs, or options for improving home safety. Insurance [facility] CHO[facility] PLUS [facility] PL[facility] Care Teams Wearing Apparel Presser Relationship Specialty Start Date End Date Viktor Banegas MD [address] [place] [address] PCP - General Family Medicine 08/16/23
--- NOTE | 2024-06-06 13:48 | ECHO_ITS ---
Patient Info Name: Danielle Adamson Age: 48 years : 1975 Gender: Female Ht: 64 in Wt: 177 lbs BSA: 1.93 m2 HR: 67 bpm BP: 140 / 90 mmHg Technical Quality: Good Exam Date: 06/06/2024 1:58 PM Exam Location: Echo Lab Exam Room: OP Patient Status: Outpatient Admit Date: 06/06/2024 Staff Ordering Physician: Viktor Banegas MD Mobile Homes Repairer: Jennifer Hilliard RDCS Attending Provider: Viktor Banegas MD Referring Physician: Bassam GUNDERSON; Exam Type: CA echo doppler color flow Study Info Indications - CARDIOMEGALY Complete two-dimensional, color flow and Doppler transthoracic echocardiogram is performed. Summary 1. Complete two-dimensional, color flow and Doppler transthoracic echocardiogram is performed. 2. Left ventricular chamber dimension is normal. 3. Left ventricular systolic function is normal, estimated at 60-65%. 4. The left ventricular diastolic function is grade I diastolic dysfunction. 5. E/e' 11 is mildly elevated. 6. Left atrial chamber dimension is mildly enlarged. 7. There is trace mitral valve regurgitation. 8. There is trace tricuspid valve regurgitation. 9. No pulmonary hypertension, estimated pulmonary arterial systolic pressure is 30 mmHg. Left Ventricle E/e' 11 is mildly elevated. Left ventricular chamber dimension is normal. Left ventricular systolic function is normal, estimated at 60-65%. The left ventricular diastolic function is grade I diastolic dysfunction. Right Ventricle Right ventricular systolic function is normal and with normal TAPSE 2.0 cm. Right ventricular chamber dimension is normal. Left Atria Left atrial chamber dimension is mildly enlarged. Right Atria Right atrial chamber dimension is normal. Aortic Valve The aortic valve is trileaflet. There is no aortic valve stenosis. There is no aortic valve regurgitation. Pulmonic Valve There is no pulmonic regurgitation. Mitral Valve There is no mitral valve stenosis. There is trace mitral valve regurgitation. Tricuspid Valve There is trace tricuspid valve regurgitation. No pulmonary hypertension, estimated pulmonary arterial systolic pressure is 30 mmHg. Pericardium/Pleural There is no pericardial effusion. Inferior Vena Cava Normal inferior vena cava with >50% collapse upon inspiration consistent with normal right atrial pressure, 5 mmHg. Aorta The aortic root size at the sinus of Valsalva is normal. Left Ventricular Outflow Tract Name Value Normal LVOT 2D LVOT Diameter 2.0 cm LVOT Doppler LVOT Peak Gradient 3 mmHg LVOT Mean Gradient 2 mmHg LVOT VTI 19 cm LVOT VTI/AV VTI Ratio 0.7 LVOT Stroke Volume 58 ml LVOT CO 4.1 l/min LVOT CI 2.1 l/min/m2 Pulmonic Valve Name Value Normal PV Doppler PV Peak Gradient 3 mmHg Mitral Valve Name Value Normal MV Doppler MV Peak Gradient 4 mmHg MV Mean Gradient 2 mmHg MV Decel [place] 468 cm/s2 MV PHT 57 ms MV Area (PHT) 3.8 cm2 4.0-5.0 MV Area (Cont Eq VTI) 2.0 cm2 MV Diastolic Function MV E Peak Velocity 93 cm/s MV A Peak Velocity 97 cm/s MV E/A 0.9 MV Decel Time 198 ms MV Annular TDI MV E/e' (Septal) 13.7 <=8.0 MV E/e' (Lateral) 9.8 <=8.0 MV E/e' (Average) 11.8 Tricuspid Valve Name Value Normal TV Regurgitation Doppler TR Peak Velocity 251 cm/s TR Peak Gradient 25 mmHg Estimated PAP/RSVP RA Pressure 5 mmHg <=5 PA Systolic Pressure 30 mmHg <36 RV Systolic Pressure 30 mmHg <36 Aortic Valve Name Value Normal AV Doppler AV Peak Velocity 120 cm/s AV Peak Gradient 6 mmHg AV Mean Gradient 3 mmHg AV VTI 26 cm AV Area (Cont Eq VTI) 2.2 cm2 >=3.0 AV Area (Cont Eq Maik) 2.4 cm2 AV Regurgitation 2D LVOT Area 3.0 cm2 Ventricles Name Value Normal LV Dimensions 2D/MM IVS Diastolic Thickness (2D) 0.8 cm 0.6-1.0 LVID Diastole (2D) 4.6 cm 3.8-5.2 LVIW Diastolic Thickness (2D) 0.9 cm 0.6-0.9 LVID Systole (2D) 3.2 cm 2.2-3.5 LVOT Diameter 2.0 cm LV Mass (2D Cubed) 135.78 g 67.00-162.00 LV Mass Index (2D Cubed) 70 g/m2 43-95 Relative Wall Thickness (2D) 0.40 LV Fractional Shortening/Ejection Fraction 2D/MM LV Fractional Shortening (2D) 31 % 27-45 LV EF (2D Teicholz) 58 % 54-74 LV Diastolic Volume (4C MOD) 124 ml LV EF (4C MOD) 63 % LV Diastolic Length (4C) 7.8 cm LV Systolic Length (4C) 6.8 cm LV Stroke Volume (4C MOD) 78 ml Atria Name Value Normal LA Dimensions LA Volume (4C A-L) 45 ml RA Dimensions RA Area (4C) 13.6 cm2 <=18.0 Report Signatures
== END 2024-06-06 13:18 | disposition home or self-care (01) ==
PROVIDERS: PCP Family Medicine; Visit Provider Family Medicine
DX: I51.7 Cardiomegaly (principal); I51.89 Other ill-defined heart diseases
CPT/HCPCS: 93306